=== PATIENT | female | born 1980 | race Two or more races ===

== ENCOUNTER 2017-11-26 16:45 | Emergency (ER) | payer OTHER ==
[~2017-11-26] VITALS: Ht 154.9 cm; Wt 52.2 kg
[~2017-11-26 16:45] MED LIST: ALLEGRA ALLERG180 MG PO; FLONASE16 GM NS; GILTUSS TR TAB1 EACH PO; LEVAQUIN750 MG PO; ZITHROMAX TRI-500 MG PO
== END 2017-11-26 18:33 | disposition home or self-care (01) ==
LOC: ER 16:45
DX: S13.4XXA Sprain of ligaments of cervical spine, initial encounter (principal); V49.9XXA Car occupant (driver) (passenger) injured in unspecified traffic accident, initial encounter; Y93.89 Activity, other specified; Y92.488 Other paved roadways as the place of occurrence of the external cause; Y99.8 Other external cause status

== ENCOUNTER 2024-05-10 00:09 | Emergency (ER) | payer OTHER ==
[~2024-05-10] VITALS: Ht 154.9 cm; Wt 54.4 kg
== END 2024-05-10 04:48 | disposition home or self-care (01) ==
LOC: ER 00:11
DX: K59.01 Slow transit constipation (principal); Z88.8 Allergy status to other drugs, medicaments and biological substances